=== PATIENT | male | born 1955 | race Caucasian/White ===

== ENCOUNTER 2017-03-25 09:07 | Emergency (ER) | payer OTHER ==
[2017-03-25 09:19] VITALS: BMI 29.0
--- NOTE | 2017-03-25 09:38 | PDOC ---
History of Present Illness <Shashi Junior - Last Filed: 03/25/17 16:17> - History of Present Illness Initial Comments: 03/25/17 10:50 The patient is a 61 year old male, with a significant past medical history of polymyositis, who presents to the emergency department with elevated CK and persistent cough. The patient states he saw Dr. Braun, dental equipment mechanic, last week for his routine visit (goes every 3 months) and reported the patients CK to be in the 3000s. The patient states he was started on azathioprine (1 pill for a week then 2 pills the second week), however, reportedly stopped taking the medication yesterday at the advisement of Dr. Braun after the patient called him complaining of cough exacerbation since starting the azathioprine. The patient also reportedly developed a low fever and diaphoresis at the start of his cough symptoms a few days ago. The patient also states he had been taking methotrexate for his polymyositis for 10 years, stopped for the past year , however it was noted at the time that the patients CK was in the 300s as if I was taking the methotrexate when I had not been. The patient was reportedly started back on the methotrexate 3 months ago (10 pills of 2.5mg), however states he only took 5 because it made me nauseous. Secondarily, the patient denies receiving the influenza vaccine in the past 20 years. He denies chest pain, shortness of breath, headache and dizziness. He denies fever, chills, nausea, vomit, diarrhea and constipation. He denies dysuria, frequency, urgency and hematuria. Allergies: NKDA PCP: Dr. Charo Guzmán Rheumotologist: Dr. Braun Orthopedic Designer: Dr. Peewee Trevino <Ana Lilia Briscoe - Last Filed: 03/25/17 18:01> - General Chief Complaint: Revisit, Lab Variance Stated Complaint: LAB VARIANCE (PCP SENT) Past History - Past Medical History COPD: No Other medical history: polymyocytis - Suicide/Smoking/Psychosocial Hx Smoking History: Never smoked <Shashi Junior - Last Filed: 03/25/17 16:17> <Ana Lilia Briscoe - Last Filed: 03/25/17 18:01> - Past Medical History Allergies/Adverse Reactions: Allergies Allergy/AdvReac Type Severity Reaction Status Date / Time No Known Allergies Allergy Verified 03/25/17 09:19 Review of Systems - Review of Systems Able to Perform ROS?: Yes Comments:: 03/25/17 11:09 GENERAL/CONSTITUTIONAL: No fever or chills. No weakness. HEAD, EYES, EARS, NOSE AND THROAT: No change in vision. No ear pain or discharge. No sore throat. CARDIOVASCULAR: No chest pain or shortness of breath. RESPIRATORY: (+) cough, No wheezing, or hemoptysis. GASTROINTESTINAL: No nausea, vomiting, diarrhea or constipation. GENITOURINARY: No dysuria, frequency, or change in urination. MUSCULOSKELETAL: No joint or muscle swelling or pain. No neck or back pain. SKIN: No rash NEUROLOGIC: No headache, vertigo, loss of consciousness, or change in strength/ sensation. ENDOCRINE: No increased thirst. No abnormal weight change. HEMATOLOGIC/LYMPHATIC: No anemia, easy bleeding, or history of blood clots. ALLERGIC/IMMUNOLOGIC: No hives or skin allergy. <Ana Lilia Briscoe - Last Filed: 03/25/17 18:01> *Physical Exam - Vital Signs Last Vital Signs Temp Pulse Resp BP Pulse Ox 96.9 F L 82 18 144/81 99 03/25/17 09:16 03/25/17 09:16 03/25/17 09:16 03/25/17 09:16 03/25/17 09:16 <Shashi Junior - Last Filed: 03/25/17 16:17> - Vital Signs Last Vital Signs Temp Pulse Resp BP Pulse Ox 96.9 F L 82 18 144/81 98 03/25/17 09:16 03/25/17 09:16 03/25/17 09:16 03/25/17 09:16 03/25/17 09:49 - Physical Exam Comments: 03/25/17 11:09 GENERAL: Awake, alert, and fully oriented, in no acute distress HEAD: No signs of trauma EYES: PERRLA, EOMI, sclera anicteric, conjunctiva clear ENT: Auricles normal inspection, hearing grossly normal, nares patent, oropharynx clear without exudates. Moist mucosa NECK: Normal ROM, supple, no lymphadenopathy, JVD, or masses LUNGS: Breath sounds equal, clear to auscultation bilaterally. No wheezes, and no crackles HEART: Regular rate and rhythm, normal S1 and S2, no murmurs, rubs or gallops ABDOMEN: Soft, nontender, normoactive bowel sounds. No guarding, no rebound. No masses EXTREMITIES: Normal range of motion, no edema. No clubbing or cyanosis. No cords, erythema, or tenderness NEUROLOGICAL: Cranial nerves II through XII grossly intact. Normal speech, normal gait SKIN: Warm, Dry, normal turgor, no rashes or lesions noted. <Ana Lilia Briscoe - Last Filed: 03/25/17 18:01> Heart Score/ECG Review - ECG Intrepretation Comment:: 03/25/17 10:30 EKG was read at 10:[address] Junior Impression: Normal sinus rhythm. septal infarct of undetermined age <Ana Lilia Briscoe - Last Filed: 03/25/17 18:01> ED Treatment Course - LABORATORY CBC & Chemistry Diagram: 03/25/17 10:10 03/25/17 10:10 <Shashi Junior - Last Filed: 03/25/17 16:17> - LABORATORY CBC & Chemistry Diagram: 03/25/17 10:10 03/25/17 10:10 - ADDITIONAL ORDERS Additional order review: Laboratory Results 03/25/17 10:10 Creatine Kinase Cancelled Troponin I Cancelled 03/25/17 10:10 RBC 4.67 MCV 87.7 MCHC 33.2 RDW 13.4 MPV 7.0 L Neutrophils % 52.6 Lymphocytes % 38.4 Monocytes % 5.5 Eosinophils % 3.1 Basophils % 0.4 - RADIOLOGY Radiograph Interpretation: EXAM#: TYPE/EXAM: RESULT: [id number] RAD/CHEST PA LAT Chest: Cough 2 views reveal clear lungs, rotation to the left, prominent mediastinum and sharp angles. There is mamillation of the right hemidiaphragm. An acute process is not seen. There are degenerative changes with wedging. Since 06/07/2015, there is no change of an adverse nature. Impression : No acute pathology. No significant change. Reported By: Richi Guerra MD 03/25/17 2390 <Ana Lilia Briscoe - Last Filed: 03/25/17 18:01> Medical Decision Making - Medical Decision Making 03/25/17 11:12 This pt is a 61 yo M with a PMHx of polymyositis who presents for evaluation of elevated CK and persistent cough. I will obtain EKG, CXR, CBC, CMP, CK MB, Liver profile to evaluate for any abnormalities. 03/25/17 12:41 Patient's case discussed with Dr. Gotti who agrees to manage his medications and follow-up. <Ana Lilia Briscoe - Last Filed: 03/25/17 18:01> *DC/Admit/Observation/Transfer - Discharge Dispostion Admit: No - Attestations Physician Attestion: 03/25/17 09:35 I, Dr. Shashi Junior, attest that this document has been prepared under my direction and personally reviewed by me in its entirety. I further attest, that it accurately reflects all work, treatment, procedures and medical decision -making performed by me. <Shashi Junior - Last Filed: 03/25/17 16:17> - Attestations Scribe Attestion: 03/25/17 11:10 Documentation prepared by Ana Lilia Briscoe, acting as medical liaison for Shashi Junior DO <Ana Lilia Briscoe - Last Filed: 03/25/17 18:01> Diagnosis at time of Disposition: Elevated CPK - Discharge Dispostion Disposition: HOME Condition at time of disposition: Unchanged/Unknown - Referrals Referrals: Joe Gotti MD [Primary Care Provider] - - Patient Instructions Additional Instructions: Mr Jain- I am sorry that you are going through all this right now. Please speak with your dental equipment mechanic later this afternoon regarding medication changes. Best- Dr. Shashi Junior - Post Discharge Activity
[2017-03-25 10:22] LABS: BASO % 0.4 % (0-2.0); EOS # 0.3 #; EOS % 3.1 % (0-4.5); LYMPH # 3.5; MCH 29.1 pg (25.7-33.7); MCHC 33.2 g/dl (32.0-35.9); MEAN CELL VOLUME 87.7 fl (80-96); MONO # 0.5 #; NEUT # 4.7 #; NEUT % 52.6 % (42.8-82.8); PLATELET COUNT 284 K/MM3 (134-434); RDW 13.4 % (11.9-15.9)
[2017-03-25 10:51] LABS: ALBUMIN 3.5 g/dl (3.4-5.0); ANION GAP 8 (8-16); BILIRUBIN,DIRECT < 0.2 mg/dL (0.0-0.2); BILIRUBIN,TOTAL 0.7 mg/dL (0.2-1.0); CALCIUM 9.4 mg/dL (8.5-10.1); CO2 32 mmol/L (21-32); CREATININE 0.8 mg/dL (0.7-1.3); GLUCOSE,RANDOM 100 mg/dL (74-106); SGOT/AST 81 U/L (15-37); SGPT/ALT 71 U/L (12-78); TOT PROT 7.2 g/dl (6.4-8.2)
[2017-03-25 10:59] LABS: URINE APPEARANCE SLCLOUDY; URINE BILIRUBIN NEGATIVE (NEGATIVE); URINE BLOOD NEGATIVE (NEGATIVE); URINE COLOR AMBER; URINE GLUCOSE (UA) NEGATIVE (NEGATIVE); URINE KETONE NEGATIVE (NEGATIVE); URINE LEUK ESTERASE NEGATIVE (NEGATIVE); URINE NITRITE NEGATIVE (NEGATIVE); URINE PROTEIN NEGATIVE (NEGATIVE)
[2017-03-25 10:59] LABS: INR 1.23 (0.82-1.09); PROTHROMBIN TIME (PATIENT) 13.9 SEC (9.98-11.88)
[2017-03-25 11:07] LABS: ALK PHOS 73 U/L (45-117); CPK 1858 IU/L (39-308); TROPONIN I < 0.02 ng/ml (0.00-0.05)
[2017-03-25] MEDS ORDERED: SODIUM CHLORIDE 1,000 ML IV STA ×2 (11:31→11:32)
--- NOTE | 2017-03-25 12:30 | EKG ---
Test Reason : Blood Pressure : / mmHG Vent. Rate : 072 BPM Atrial Rate : 072 BPM P-R Int : 152 ms QRS Dur : 098 ms QT Int : 380 ms P-R-T Axes : 048 006 027 degrees QTc Int : 416 ms NORMAL SINUS RHYTHM SEPTAL INFARCT , AGE UNDETERMINED ABNORMAL ECG WHEN COMPARED WITH ECG OF 28-SEP-2006 19:15, NO SIGNIFICANT CHANGE WAS FOUND Confirmed by JERMAINE JACOBO MD ([id number]) on 03/25/2017 12:30:24 PM Referred By: Confirmed By:JERMAINE JACOBO MD
[2017-03-25 15:23] LABS: TROPONIN I 0.02 ng/ml (0.00-0.05)
[2017-03-25 15:42] VITALS: BP 131/78; PULSE 71; TEMP 98.1
[2017-03-25 18:53] LABS: URINE LEUK ESTERASE Negative (NEGATIVE)
== END 2017-03-25 16:34 | disposition home or self-care (01) ==
LOC: JER 09:07
PROC: 3E0337Z Introduction of Electrolytic and Water Balance Substance into Peripheral Vein, Percutaneous Approach (ICD-10-PCS; principal; 2017-03-25)
DX: R76.8 Other specified abnormal immunological findings in serum (principal); M33.20 Polymyositis, organ involvement unspecified
CPT/HCPCS: 36415; 71020-TC; 80053; 80076; 81003; 82550; 82553; 84484; 85025; 85610; 93005; 93010; 99283-25